=== PATIENT | male | born 1965 | race Caucasian/White ===

== ENCOUNTER 2022-07-07 20:14 | Emergency (ER) | payer OTHER ==
[~2022-07-07] VITALS: Ht 167.6 cm; Wt 85.4 kg
[2022-07-07] MEDS ORDERED: NIFE-40 PO (20:27)
[2022-07-07] MEDS ORDERED: METO25 PO (20:27)
[2022-07-07] MEDS ORDERED: ATOR10TA PO (20:27)
[2022-07-07] MEDS ORDERED: SODI650T33 PO (20:27)
[2022-07-07] MEDS ORDERED: LABETALOL HCL 5 MG/ML 20 ML VIAL IVP ONE ×2 (20:45→21:30)
[2022-07-07 20:52] LABS: BASOPHILS % (AUTO) 0.9 % (0.0-2.0); EOSINOPHILS % (AUTO) 1.5 % (1.0-6.0); HEMATOCRIT 52.5 % (41-53); HEMOGLOBIN 16.9 g/dL (13.5-17.5); LYMPHOCYTES # (AUTO) 2.4 K/uL (1.0-4.8); LYMPHOCYTES % (AUTO) 15.3 % (22.0-44.0); MEAN CORPUSCULAR HEMOGLOBIN 27.8 pg (26.0-34.0); MEAN CORPUSCULAR HGB CONC 32.2 G/dL (31.0-37.0); MEAN CORPUSCULAR VOLUME 86 fL (80-100); MONOCYTES # (AUTO) 0.9 K/uL (0.1-1.0); MONOCYTES % (AUTO) 5.9 % (2.0-9.0); NEUTROPHILS # (AUTO) 11.9 K/uL (1.8-7.7); NEUTROPHILS % (AUTO) 76.4 % (40.0-70.0); PLATELET COUNT (AUTO) 339 K/uL (150-450); RED BLOOD CELL COUNT(AUTO) 6.09 MIL/uL (4.50-5.90); RED CELL DISTRIBUTION WIDTH 15.1 % (11.5-14.5)
[2022-07-07 21:03] LABS: ANION GAP 15 mmol/L (8-16); CALCIUM, TOTAL 9.3 mg/dL (8.8-10.5); CARBON DIOXIDE 19 mmol/L (22-29); CHLORIDE 106 mmol/L (98-107); CREATININE 3.97 mg/dL (0.60-1.30); GLOMERULAR FILTR. RATE CALC 16 mL/min (>60); GLUCOSE,RANDOM 123 mg/dL (70-110); POTASSIUM 4.2 mmol/L (3.5-5.1); SODIUM SERUM 140 mmol/L (136-145); UREA NITROGEN, BLOOD 30 mg/dL (7-18)
[2022-07-07 21:08] LABS: PROTHROMBIN TIME 10.6 SEC (9.4-11.6)
[2022-07-07 21:09] LABS: ALANINE AMINOTRANSFERASE 25 U/L (12-78); ALBUMIN 3.8 g/dL (3.4-5.0); ALKALINE PHOSPHATASE 132 U/L (46-116); ASPARTATE AMINOTRANSFERASE 31 U/L (15-37); BILIRUBIN,TOTAL 0.4 mg/dL (0.1-1.0); TOTAL PROTEIN, SERUM 8.5 g/dL (6.4-8.2)
[2022-07-07] MEDS ORDERED: SODIUM CHLORIDE 0.9% 1,000 ML IV ONE (21:15)
[2022-07-07 22:03] LABS: LACTIC ACID 1.3 mmol/L (0.4-2.0)
[2022-07-07] MEDS ORDERED: NiCARDipine HCL 25 MG in SODIUM CHLORIDE 0.9% 240 ML IV PRN (22:15)
[2022-07-07 22:22] LABS: COVID AG,FIA SOURCE NASAL SWAB
[2022-07-07] MEDS ORDERED: HEPARIN SODIUM,PORCINE 5,000 UNITS/ML VIAL IVP ONE ×2 (22:30)
[2022-07-07] MEDS ORDERED: HEPARIN SODIUM 25000 UNITS/D5W 250 ML IV PRN (22:30)
[2022-07-07] MEDS ORDERED: HEPARIN SODIUM,PORCINE 5,000 UNITS/ML VIAL IVP PRN ×2 (22:30)
[2022-07-07 22:49] LABS: PROTHROMBIN TIME 10.9 SEC (9.4-11.6)
[2022-07-08 00:24] VITALS: BP 152/77
== END 2022-07-08 01:00 | disposition short-term general hospital (02) ==
LOC: EMS 20:15
DX: I21.4 Non-ST elevation (NSTEMI) myocardial infarction (principal); R41.82 Altered mental status, unspecified; E78.00 Pure hypercholesterolemia, unspecified; I10 Essential (primary) hypertension; Z20.822 Contact with and (suspected) exposure to COVID-19
CPT/HCPCS: 99291; 70450; 96365; 96375; 96366; 87426; 80053; 82140; 82550; 83605; 84484; 85025; 85610; 85730; 87040; 71045; 72125; 93005; 96376; 96368; 36415; G0480; J1644 ×2; J3490 ×3; J7050 ×2; 51702

== ENCOUNTER 2022-08-30 13:55 | Emergency (ER) | payer OTHER ==
[~2022-08-30] VITALS: Ht 170.2 cm; Wt 85.0 kg
[~2022-08-30 13:55] MED LIST: ATOR10TA PO; METO25 PO; NIFE-40 PO; SODI650T33 PO
[2022-08-30 13:57] VITALS: BP 137/72
[2022-08-30] MEDS ORDERED: CHOL100062 PO (14:44)
[2022-08-30] MEDS ORDERED: ASPI-1198 PO (14:44)
[2022-08-30] MEDS ORDERED: CALC0.2521 PO (14:44)
[2022-08-30] MEDS ORDERED: HYDR-4174 PO (14:44)
[2022-08-30] MEDS ORDERED: NIFE-79 PO (14:44)
[2022-08-30] MEDS ORDERED: ISOS60TA58 PO (14:44)
[2022-08-30] MEDS ORDERED: METO50 PO ×2 (14:44→14:49)
[2022-08-30] MEDS ORDERED: CLON1PAT13 TD (14:44)
[2022-08-30] MEDS ORDERED: ACETAMINOPHEN 500 MG TABLET PO ONE (14:45)
[2022-08-30] MEDS ORDERED: CYCLOBENZAPRINE HCL 10 MG TABLET PO ONE (14:45)
[2022-08-30] MEDS ORDERED: NIFE-129 PO (14:49)
[2022-08-30] MEDS ORDERED: HYDR50TA36 PO (14:49)
[2022-08-30] MEDS ORDERED: ISOS60TA77 PO (14:49)
[2022-08-30] MEDS ORDERED: LOSA-382 PO (14:49)
== END 2022-08-30 15:51 | disposition home or self-care (01) ==
LOC: EMS 13:58
DX: R51.9 Headache, unspecified (principal); I10 Essential (primary) hypertension; F03.90 Unspecified dementia, unspecified severity, without behavioral disturbance, psychotic disturbance, mood disturbance, and anxiety; E78.00 Pure hypercholesterolemia, unspecified; F17.210 Nicotine dependence, cigarettes, uncomplicated; F15.90 Other stimulant use, unspecified, uncomplicated
CPT/HCPCS: 99283